=== PATIENT | male | born 1965 | race Caucasian/White ===

== ENCOUNTER 2017-01-09 18:36 | Emergency (ER) | payer BC ==
[~2017-01-09] VITALS: Ht 170.2 cm; Wt 111.1 kg
[2017-01-09] MEDS ORDERED: BACTRIM DS TAB1 EACH PO (18:53)
[2017-01-09] MEDS ORDERED: HYDROCODONE-AP1 EAC6 PO (20:02)
[2017-01-09 20:14] VITALS: BP 150/77
== END 2017-01-09 20:16 | disposition home or self-care (01) ==
LOC: ER 18:36
DX: L72.3 Sebaceous cyst (principal); I10 Essential (primary) hypertension; E11.9 Type 2 diabetes mellitus without complications; F10.99 Alcohol use, unspecified with unspecified alcohol-induced disorder

== ENCOUNTER 2017-06-05 13:35 | Emergency (ER) | payer BC ==
[~2017-06-05] VITALS: Ht 170.2 cm; Wt 106.6 kg
--- NOTE | ~2017-06-05 | EKG ---
[place] [address] [address] [facility] [place] [address] ELECTROCARDIOGRAM REPORT Name: EZIO CLINE Room #: [facility]P [facility] [id number] Admission: 06/05/17 Attend Phys: Discharge: 06/05/17 Date of : 63 Report #: [id number] THIS REPORT FOR: //name// [facility] ED Test Date: 2017-06-05 Test Time: 14:24:47 Pat Name: EZIO CLINE Department: Room: Gender: Administrative Director: [facility] : 1965 Requested By: Renu Lowry Order Number: [id number] MD: Trae Horan Measurements Intervals [place] Rate: 57 P: 44 MN: 192 QRS: 29 QRSD: 84 T: -13 QT: 439 QTc: 428 Interpretive Statements Sinus rhythm Borderline T abnormalities Compared to ECG 11/09/2007 19:41:24 T-wave abnormality now present Electronically Signed On 06-06-2017 11:17:00 [employer] by Trae Horan [email or web address] <ELECTRONICALLY SIGNED> By: Trae Horan MD, [facility] 06/06/17 1117 1424 1424 Trae Horan MD, FACC /EPI
[~2017-06-05 13:35] MED LIST: BACTRIM DS TAB1 EACH PO; HYDROCODONE-AP1 EAC6 PO
[2017-06-05 14:20] LABS: ABSOLUTE NEUTROPHILS 5.1 thou/uL (1.4-8.2); BASOPHILS 0.6 % (0.0-2.0); EOSINOPHILS 1.2 % (0.0-3.0); HEMATOCRIT 44.6 % (42.0-52.0); HEMOGLOBIN 14.8 gm/dL (14.0-18.0); LYMPHOCYTES 21.7 % (24.0-44.0); MANUAL DIFF NO; MCH 28.5 pg (26.0-34.0); MCHC 33.1 g/dL (28.0-37.0); MCV 86.2 fL (80.0-100.0); MONOCYTES 8.9 % (1.0-8.0); PLATELET COUNT 216 thou/uL (150-400); POLYS 67.6 % (36.0-66.0); RBC 5.17 mil/uL (4.50-6.00); RDW 13.8 % (10.5-14.5); WBC 7.6 thou/uL (4.0-11.0)
[2017-06-05 14:28] LABS: ANION GAP 11 mmol/L (7-16); BUN 26 mg/dL (7-18); CALCIUM 9.6 mg/dL (8.5-10.1); CHLORIDE 100 mmol/L (98-107); CO2 28 mmol/L (21-32); CREATININE 1.2 mg/dL (0.7-1.3); GLUCOSE 178 mg/dL (74-106); POTASSIUM 3.7 mmol/L (3.5-5.1); SODIUM 139 mmol/L (136-145)
[2017-06-05 14:37] LABS: ALBUMIN 3.8 g/dL (3.4-5.0); ALKALINE PHOSPHATASE 103 U/L (46-116); DIRECT BILIRUBIN 0.2 mg/dL (<0.1-0.3); SGOT 44 U/L (15-37); SGPT 74 U/L (30-65); TOTAL BILIRUBIN 0.6 mg/dL (<0.1-1.0); TOTAL PROTEIN 7.8 g/dL (6.4-8.2); TROPONIN-I < 0.04 ng/mL (<0.06)
[2017-06-05 15:33] LABS: URINE BILIRUBIN NEGATIVE (Negative); URINE BLOOD NEGATIVE (Negative); URINE COLOR YELLOW; URINE GLUCOSE-RANDOM* 3+ (Negative); URINE KETONES 1+ (Negative); URINE LEUKOCYTES-REFLEX NEGATIVE (Negative); URINE PROTEIN (DIPSTICK) NEGATIVE (Negative); URINE SPECIFIC GRAVITY 1.015 (1.003-1.035); URINE UROBILINOGEN 0.2 E.U./dl (0.2-1.0)
[2017-06-05 17:46] VITALS: BP 125/68
== END 2017-06-05 17:47 | disposition home or self-care (01) ==
LOC: ER 13:35
PROVIDERS: Emergency Medicine
DX: E11.65 Type 2 diabetes mellitus with hyperglycemia (principal); R10.9 Unspecified abdominal pain; I10 Essential (primary) hypertension; Z88.0 Allergy status to penicillin